=== PATIENT | male | born 1975 | race Caucasian/White ===

== ENCOUNTER 2016-06-04 09:15 | Emergency (ER) | payer MEDICAID ==
[~2016-06-04] VITALS: Ht 182.9 cm; Wt 105.0 kg
[2016-06-04 09:19] VITALS: Ht 182.9 cm; Wt 105.0 kg
[2016-06-04] MEDS ORDERED: KETOROLAC 30 MG INJ IV STA (10:28)
[2016-06-04 10:53] LABS: EOSINOPHILS % 0.2 % (0.0-7.0); HEMATOCRIT 46.2 % (42.0-52.0); HEMOGLOBIN 15.5 g/dl (14.0-18.0); LYMPHOCYTES # 1.7 10^3/ul (0.8-2.9); LYMPHOCYTES % 13.5 % (15.0-51.0); MEAN CORPUSCULAR HEMOGLOBIN 29.4 pg (29.0-33.0); MEAN CORPUSCULAR HGB CONC 33.5 g/dl (32.0-37.0); MEAN CORPUSCULAR VOLUME 87.8 fl (82.0-101.0); MEAN PLATELET VOLUME 8.8 fl (7.4-10.4); MONOCYTE # 0.6 10^3/ul (0.3-0.9); MONOCYTES % 4.5 % (0.0-11.0); NEUTROPHIL # 10.4 10^3/ul (1.6-7.5); NEUTROPHILS % 81.8 % (39.0-77.0); PLATELET COUNT 221 10^3/UL (140-440); RED BLOOD COUNT 5.26 10^6/ul (4.70-6.10); RED CELL DISTRIBUTION WIDTH 13.4 % (11.5-14.5); UNCORRECTED WBC 12.7 10^3/ul (4.8-10.8); WHITE BLOOD COUNT 12.7 10^3/ul (4.8-10.8)
--- NOTE | 2016-06-04 10:54 | ERD ---
ER Documentation Chief Complaint Date/Time DATE: 06/04/16 TIME: 10:53 Chief Complaint LT UPPER ABD PAIN X 1 DAY HPI This is a 40-year-old male who presents to emergency department today complaining of left lower quadrant pain and flank pain that started yesterday. Patient has a history of kidney stones. . States he was last seen in 2011 and diagnosed with kidney stones. If he is taking Naprosyn for the pain.Patient denies any fevers or chills, nausea or vomiting. Denies any dysuria or hematuria ROS All systems reviewed and are negative except as per history of present illness. Medications Home Meds Active Scripts Hydrocodone/Acetaminophen ([place] 10-325 Tablet) 1 Each Tablet, 1 TAB PO Q6H Y for PAIN, #20 TAB Prov:SHAWN ORDOÑEZ PA-C 06/04/16 Allergies Allergies: Coded Allergies: No Known Allergy (Unverified , 01/06/12) PMhx/Soc History of Surgery: No Anesthesia Reaction: No Hx Neurological Disorder: No Hx Respiratory Disorders: No Hx Cardiac Disorders: No Hx Psychiatric Problems: No Hx Miscellaneous Medical Probl: No Hx Alcohol Use: No Hx Substance Use: No Hx Tobacco Use: No Physical Exam Vitals Vital Signs Date Time Temp Pulse Resp B/P Pulse Ox O2 Delivery O2 Flow Rate FiO2 06/04/16 09:19 98.2 68 16 156/91 97 Physical Exam Const: No acute distress Head: Atraumatic Eyes: Normal Conjunctiva ENT: Normal External Ears, Nose and Mouth. Neck: Full range of motion..~ No meningismus. Resp: Clear to auscultation bilaterally Cardio: Regular rate and rhythm, no murmurs Abd: Soft, left lower quadrant pain non distended. Normal bowel sounds. No right lower quadrant pain. No tenderness at McBurney's. Skin: No petechiae or rashes Back: No midline tenderness. Left-sided flank tenderness. No CVA tenderness. Ext: No cyanosis, or edema Neur: Awake and alert Psych: Normal Mood and Affect Result Diagram: 06/04/16 1040 06/04/16 1028 Results 24 hrs Laboratory Tests Test 06/04/16 10:28 06/04/16 10:40 Alanine Aminotransferase (ALT/SGPT) 120IU/L Albumin 4.5g/dl Albumin/Globulin Ratio 1.18 Alkaline Phosphatase 82IU/L Anion Gap 18 Aspartate Amino Transf (AST/SGOT) 71IU/L Blood Urea Nitrogen 14mg/dl Calcium Level 9.4mg/dl Carbon Dioxide Level 27mmol/L Chloride Level 102mmol/L Creatinine 0.76mg/dl Direct Bilirubin 0.00mg/dl Globulin 3.80g/dl Glucose Level 104mg/dl Indirect Bilirubin 0.6mg/dl Lipase 59U/L Potassium Level 4.3mmol/L Sodium Level 143mmol/L Total Bilirubin 0.6mg/dl Total Protein 8.3g/dl Basophils # 0.010^3/ul Basophils % 0.0% Eosinophils # 0.010^3/ul Eosinophils % 0.2% Hematocrit 46.2% Hemoglobin 15.5g/dl Lymphocytes # 1.710^3/ul Lymphocytes % 13.5% Mean Corpuscular Hemoglobin 29.4pg Mean Corpuscular Hemoglobin Concent 33.5g/dl Mean Corpuscular Volume 87.8fl Mean Platelet Volume 8.8fl Monocytes # 0.610^3/ul Monocytes % 4.5% Neutrophils # 10.410^3/ul Neutrophils % 81.8% Nucleated Red Blood Cells # 0.010^3/ul Nucleated Red Blood Cells % 0.0/100WBC Platelet Count 70066^3/UL Red Blood Count 5.2610^6/ul Red Cell Distribution Width 13.4% Urine Bacteria RARE Urine Bilirubin NEGATIVE Urine Clarity CLEAR Urine Color LT. YELLOW Urine Epithelial Cells OCCASIONAL Urine Glucose NEGATIVE% Urine Hemoglobin 3+ Urine Ketones NEGATIVE Urine Leukocyte Esterase NEGATIVE Urine Microscopic RBC 5-10/HPF Urine Microscopic WBC 2-5/HPF Urine Nitrite NEGATIVE Urine Specific [place] 1.010 Urine Total Protein NEGATIVE Urine Urobilinogen 0.2 E.U./dL Urine pH 6.0 White Blood Count 12.710^3/ul Current Medications Medications (Trade) Dose Ordered Sig/Eulogio Route PRN Reason Start Time Stop Time Status Last Admin Dose Admin Ketorolac Tromethamine (Toradol) 30 mg ONCE STAT IV 06/04/16 10:28 06/04/16 10:30 DC 06/04/16 10:46 Patient: GARY BUNDY : 1975 Age: 40 Sex: M MR #: [id number] DOS: 06/04/16 1028 Ordering MD: SHAWN ORDOÑEZ PA-C Location: [facility] Room/Bed: PROCEDURE: CT Abdomen and Pelvis without contrast. CLINICAL INDICATION: Abdominal pain. TECHNIQUE: Routine axial tomographic images of the abdomen and pelvis were obtained from the domes the diaphragm to the symphysis pubis. The patient was scanned withoutoral or intravenous contrast. Coronal and sagittal reformatted images were obtained from the axial source images. Images were reviewed on a high-resolution PACS workstation. The total exam CTDI equals 17.33 mGy and the total exam DLP equals 1114.41 mGy-cm. One or more of the following dose reduction techniques were used: Automated exposure control, adjustment of the mA and / or kV according to patient size, or use of iterative reconstruction technique. COMPARISON: None. FINDINGS: The visualized portions of the lung bases are clear. Evaluation of the intra-abdominal solid organs is somewhat limited on this noncontrast examination. The liver appears normal in size. There is no intra or extrahepatic biliary dilatation. The gallbladder is unremarkable by CT criteria. The spleen, pancreas, and adrenal glands are unremarkable. The kidneys are symmetric in size. There is mild left hydronephrosis and hydroureter with periureteral and perinephric fat stranding. There is a 3 mm calculus within the left distal ureter, just proximal to the left UVJ measuring 700 HU. There are multiple additional bilateral renal calculi, the largest within the mid pole of the right kidney measuring 4.5 mm. The urinary bladder is grossly unremarkable. The bowel demonstrates normal course and caliber. There is no evidence of bowel obstruction. The appendix is normal in appearance. The pelvic organs are grossly unremarkable. No intraperitoneal free fluid, free air, or abscess is identified. No retroperitoneal, mesenteric, or inguinal lymphadenopathy is identified. The aorta is normal in caliber. The osseous structures demonstrate bilateral L5 pars defects. No significant subcutaneous soft tissue abnormalities are seen. IMPRESSION: 1. 3 mm obstructing calculus within the left distal ureter just proximal to the left UVJ measuring 700 HU. There is mild left hydronephrosis and hydroureter with periureteral and perinephric fat stranding. 2. Multiple additional bilateral renal nonobstructing calculi the largest within the upper pole of the right kidney measuring 4.5 mm in diameter. 3. 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 RPTAT: HH .Aby Andrea MD, Date Time Electronically viewed and signed by .Aby Andrea MD, MD on 06/04/2016 11 :29 .G/ CC: SHAWN ORDOÑEZ PA-C Procedures/MDM This 40-year-old male who presents to the emergency department today complaining of left lower quadrant and flank pain. Patient does have a history of renal stones in the past. He was last seen here in 2011. I did discuss the patient with Dr. Hazel and the decision was made to obtain laboratory work as well as a CT scan. Laboratory work shows an elevated white blood cell count of 12.5. Patient is not anemic. Elected lites are within normal limits. Glucose is within normal limits. Lipase is within normal limits. Liver function is mildly elevated. UA is negative for infection. CT abdomen and pelvis noncontrast shows 3 mm obstructing calculus within the left distal ureter just proximal to the left UVJ measuring 782. There is mild left hydronephrosis and hydroureter with boubacar-ureter on perinephric fat stranding. Multiple additional bilateral renal nonobstructing calculi the largest within the upper plan of the right kidney measuring 4.5 mm in diameter. There is L5 spondylolysis without spondylolisthesis. Bowel is unremarkable. There is no evidence of bowel obstruction. Appendix is normal. There is no intraperitoneal free air free fluid or abscess identified. No evidence of diverticulitis. There is no evidence of acute surgical abdomen at this time. Patient is afebrile and otherwise well-appearing. Patient was given Toradol here in the emergency department and pain was well controlled with that. Patient indicated he only had a little bit of pain. A well be given a prescription for [place] for home. He was instructed to drink plenty of fluids. I have given him a list of referrals for primary care physicians as well as a list of urology specialist. At this time the patient is stable for discharge and outpatient management. Patient should follow up with their PCP in the next 1-2 days. They may return to the emergency department sooner for any persistent or worsening of symptoms. Patient understood and agreed with the plan. Discussed the patient with Dr. Hale at length and he is in agreement with the plan. Departure Diagnosis: Primary Impression: Nephrolithiasis Condition: SHAWN Baker PA-C Jun 04, 2016 10:54
[2016-06-04 11:06] LABS: ALBUMIN 4.5 g/dl (3.3-4.9)
[2016-06-04 11:07] LABS: POTASSIUM 4.3 mmol/L (3.5-5.1)
[2016-06-04 11:09] LABS: ALBUMIN/GLOBULIN RATIO 1.18; BILIRUBIN,INDIRECT 0.6 mg/dl (0-1.1); BILIRUBIN,TOTAL 0.6 mg/dl (0.2-1.3); CREATININE 0.76 mg/dl (0.61-1.24); TOTAL PROTEIN 8.3 g/dl (6.1-8.1)
[2016-06-04 11:10] LABS: CALCIUM 9.4 mg/dl (8.4-10.2)
[2016-06-04 11:14] LABS: CONDITION 1
--- NOTE | 2016-06-04 11:29 | RADRPT ---
PROCEDURE: CT Abdomen and Pelvis without contrast. CLINICAL INDICATION: Abdominal pain. TECHNIQUE: Routine axial tomographic images of the abdomen and pelvis were obtained from the domes the diaphragm to the symphysis pubis. The patient was scanned withoutoral or intravenous contrast. Coronal and sagittal reformatted images were obtained from the axial source images. Images were re viewed on a high-resolution PACS workstation. The total exam CTDI equals 17.33 mGy and the total exa m DLP equals 1114.41 mGy-cm. One or more of the following dose reduction techniques were used: Aut omated exposure control, adjustment of the mA and / or kV according to patient size, or use of itera tive reconstruction technique. COMPARISON: None. FINDINGS: The visualized portions of the lung bases are clear. Evaluation of the intra-abdominal solid or juliane is somewhat limited on this noncontrast examination. The liver appears normal in size. There is no intra or extrahepatic biliary dilatation. The gallbladder is unremarkable by CT criteria. Th e spleen, pancreas, and adrenal glands are unremarkable. The kidneys are symmetric in size. There is mild left hydronephrosis and hydroureter with periureter al and perinephric fat stranding. There is a 3 mm calculus within the left distal ureter, just prox imal to the left UVJ measuring 700 HU. There are multiple additional bilateral renal calculi, the l argest within the mid pole of the right kidney measuring 4.5 mm. The urinary bladder is grossly unre markable. The bowel demonstrates normal course and caliber. There is no evidence of bowel obstruction. The a ppendix is normal in appearance. The pelvic organs are grossly unremarkable. No intraperitoneal fr ee fluid, free air, or abscess is identified. No retroperitoneal, mesenteric, or inguinal lymphadeno nalini is identified. The aorta is normal in caliber. The osseous structures demonstrate bilateral L5 pars defects. No significant subcutaneous soft tiss ue abnormalities are seen. IMPRESSION: 1. 3 mm obstructing calculus within the left distal ureter just proximal to the left UVJ measuring 700 HU. There is mild left hydronephrosis and hydroureter with periureteral and perinephric fat str anding. 2. Multiple additional bilateral renal nonobstructing calculi the largest within the upper pole of the right kidney measuring 4.5 mm in diameter. 3. 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 RPTAT: HH .Aby Andrea MD, MD Date Time Electronically viewed and signed by .Aby Andrea MD, MD on 06/04/2016 11:29 .Marylin/
[2016-06-04 11:51] LABS: ADD UMIC YES; URINE BILIRUBIN (Dip) NEGATIVE (NEGATIVE); URINE BLOOD (Dip) 3+ (NEGATIVE); URINE COLOR LT. YELLOW (YELLOW); URINE GLUCOSE (Dip) NEGATIVE (NEGATIVE); URINE KETONES (Dip) NEGATIVE (NEGATIVE); URINE LEUKOCYTE ESTERASE (Dip) NEGATIVE (NEGATIVE); URINE NITRITE (Dip) NEGATIVE (NEGATIVE); URINE TOTAL PROTEIN (Dip) NEGATIVE (NEGATIVE); URINE UROBILINOGEN (Dip) 0.2 E.U./dL (0.1-1.0)
[2016-06-04 12:48] LABS: BACTERIA,URINE RARE
[2016-06-04] MEDS ORDERED: HYDR-902 PO (13:07)
[2016-06-04 13:15] VITALS: BP 128/83; PULSE 61; RESP 18; TEMP 98
== END 2016-06-04 13:15 | disposition home or self-care (01) ==
LOC: FTE 09:15
DX: N20.0 Calculus of kidney (principal)
CPT/HCPCS: 74176; 80053; 81001; 83690; 85025; J1885; 36415; 81003; 96374

== ENCOUNTER 2016-06-07 11:21 | Emergency (ER) | payer MEDICAID ==
[~2016-06-07] VITALS: Wt 100.0 kg
[~2016-06-07 11:21] MED LIST: HYDR-902 PO
[2016-06-07] MEDS ORDERED: HYDROmorphONE 2 MG/ML SYG IM STA (11:54)
[2016-06-07] MEDS ORDERED: ONDANSETRON (ODT) 4 MG TAB ODT STA (11:54)
[2016-06-07] MEDS ORDERED: KETOROLAC 30 MG INJ IM STA (11:54)
[2016-06-07 11:57] LABS: URINE BLOOD (Dip) POC 1+ (NEGATIVE)
[2016-06-07] MEDS ORDERED: IBUP-1542 PO (11:58)
[2016-06-07] MEDS ORDERED: DOCU-144 PO (11:58)
[2016-06-07] MEDS ORDERED: TAMS-14 PO (11:58)
--- NOTE | 2016-06-07 16:04 | ERD ---
ER Documentation Chief Complaint Date/Time DATE: 06/07/16 TIME: 16:02 Chief Complaint left lower quad abd pain for the past few days. no bm for 3 days HPI Patient is a 40-year-old male with kidney stone who presents with a "kidney stone". The symptoms started on Friday. The pain is constant. He tried Bessie with minimal help. He has had no fevers. He said that he has not had a bowel movement in 3 days. Upon review of old medical records this is the patient's third visit to the ER since 2011 and he was seen here 3 days ago and had labs and a CT scan which showed a kidney stone. He does not currently have a primary doctor. ROS All systems reviewed and are negative except as per history of present illness. Medications Home Meds Active Scripts Docusate Sodium* (Colace*) 100 Mg Capsule, 100 MG PO TID, #30 CAP Prov:RICCO BARRIENTOS MD 06/07/16 Tamsulosin Hcl* (Flomax*) 0.4 Mg Cap.er.24h, 0.4 MG PO QPM, #30 CAP Prov:RICCO BARRIENTOS MD 06/07/16 Ibuprofen* (Motrin*) 600 Mg Tab, 600 MG PO Q6H Y for PAIN AND OR ELEVATED TEMP, #30 TAB Prov:RICCO BARRIENTOS MD 06/07/16 Hydrocodone/Acetaminophen ([place] 10-325 Tablet) 1 Each Tablet, 1 TAB PO Q6H Y for PAIN, #20 TAB Prov:SHAWN ORDOÑEZ PA-C 06/04/16 Allergies Allergies: Coded Allergies: No Known Allergy (Unverified , 01/06/12) PMhx/Soc Positive for kidney stone History of Surgery: No Anesthesia Reaction: No Hx Neurological Disorder: No Hx Respiratory Disorders: No Hx Cardiac Disorders: No Hx Psychiatric Problems: No Hx Miscellaneous Medical Probl: No Hx Alcohol Use: No Hx Substance Use: No Hx Tobacco Use: No Smoking Status: Current some day smoker FmHx Family History: No diabetes Physical Exam Vitals Vital Signs Date Time Temp Pulse Resp B/P Pulse Ox O2 Delivery O2 Flow Rate FiO2 06/07/16 11:22 98.3 79 20 160/81 97 Physical Exam Const: Mild distress secondary to pain Head: Atraumatic Eyes: Normal Conjunctiva ENT: Normal External Ears, Nose and Mouth. Neck: Full range of motion..~ No meningismus. Resp: Clear to auscultation bilaterally Cardio: Regular rate and rhythm, no murmurs Abd: Soft, non tender, non distended. Normal bowel sounds Skin: No petechiae or rashes Back: No midline or flank tenderness Ext: No cyanosis, or edema Neur: Awake and alert Psych: Normal Mood and Affect Results 24 hrs Laboratory Tests Test 06/07/16 11:57 Bedside Urine Blood 1+ Bedside Urine Glucose (UA) Negative Bedside Urine Ketones (LAB) Negative Bedside Urine Leukocyte Esterase (L Negative Bedside Urine Nitrite (LAB) Negative Bedside Urine Protein (LAB) Trace Bedside Urine pH (LAB) 6.5 Current Medications Medications (Trade) Dose Ordered Sig/Eulogio Route PRN Reason Start Time Stop Time Status Last Admin Dose Admin Hydromorphone HCl (Dilaudid) 2 mg ONCE STAT IM 06/07/16 11:54 06/07/16 11:56 DC 06/07/16 12:01 Ketorolac Tromethamine (Toradol) 30 mg ONCE STAT IM 06/07/16 11:54 06/07/16 11:56 DC 06/07/16 12:01 Ondansetron HCl (Zofran Odt) 4 mg ONCE STAT ODT 06/07/16 11:54 06/07/16 11:56 DC 06/07/16 12:01 Procedures/MDM Patient is a 40-year-old male presents with kidney stone. CT scan showed 3 mm kidney stone when it was done 3 days ago. I do not believe he requires repeat laboratory studies or CT scan. The patient was given Dilaudid and Toradol for pain. I will give him a prescription for ibuprofen as well as Flomax and Colace. He can follow-up with Dr. Spangler from urology within 24-48 hours for reevaluation. He can return sooner for any worsening symptoms. The stone is 3 mm it may pass on its own. I doubt infected stone. Departure Diagnosis: Primary Impression: Kidney stone Additional Impression: Flank pain Condition: Fair Patient Instructions: Kidney Stone W/ Colic Referrals: CHA SPANGLER MD Additional Instructions: Specialist:Usted tiene carlos condicin mdica que requiere que valdez a un especialista dentro de los prximos 1-2 diego.POR FAVOR,CON LUKE SEGUIMIENTO DE PRIMARIA PHSICIAN refferal. SI USTED NO TIENE UN MDICO GENERAL Y / O USTED NO PUEDE PAGAR augie a un mdico,los siguientes reece RECURSOS sido suministrado a usted. ES LUKE RESPONSABILIDAD PARA SER VISTOS POR EL ESPECIALISTA: RICCO BARRIENTOS MD Jun 07, 2016 16:04
== END 2016-06-07 12:28 | disposition home or self-care (01) ==
LOC: E/R 11:21
DX: N20.0 Calculus of kidney (principal); F17.210 Nicotine dependence, cigarettes, uncomplicated
CPT/HCPCS: 81003; 96372; J1170; J1885; Z7502; Z7610

== ENCOUNTER 2017-04-26 18:10 | Emergency (ER) | END 2017-04-26 21:40 | disposition home or self-care (01) ==

== ENCOUNTER 2017-04-28 07:48 | Emergency (ER) | payer MEDICAID ==
[~2017-04-28] VITALS: Ht 182.9 cm; Wt 104.6 kg
[~2017-04-28 07:48] MED LIST changes: +DOCU-144 PO; +HYDR-906 PO; +IBUP-1542 PO; +TAMS-14 PO
[2017-04-28 07:51] VITALS: Ht 182.9 cm; Wt 104.6 kg
[2017-04-28] MEDS ORDERED: KETOROLAC 30 MG INJ IV STA (08:06)
[2017-04-28] MEDS ORDERED: morphine 4 MG/ML VIAL IV STA (08:06)
[2017-04-28] MEDS ORDERED: SOD CHLORIDE 0.9% 500 ML IV STA (08:06)
[2017-04-28] MEDS ORDERED: ONDANSETRON 4 MG INJ IV STA (08:06)
--- NOTE | 2017-04-28 08:16 | ERD ---
ER Documentation Chief Complaint Chief Complaint RLQ ABD PAIN STARTING ON FRIDAY. W/ VOMITING. HPI This is a 41-year-old Turkish-speaking male. An electrical cad designer was used. The patient describes right sided colicky abdominal pain. The patient was seen here on Friday and diagnosed with ureterolithiasis. The patient had a 6 x 5 x 3 mm stone at the UVJ. The patient had improvement of symptoms but had recurrence this morning. He is taking pain medication without much relief. Pain is 7 out of 10 and constant currently. No fevers or chills. The patient has not follow-up with urologist and does not have a urologist to see. ROS All systems reviewed and are negative except as per history of present illness. Medications Home Meds Active Scripts Tamsulosin Hcl* (Flomax*) 0.4 Mg Cap.er.24h, 0.4 MG PO QPM, #20 CAP Prov:CSOME RAO PA-C 04/26/17 Ibuprofen* (Motrin*) 600 Mg Tab, 600 MG PO Q6, #30 TAB Prov:COSME RAO PA-C 04/26/17 Hydrocodone/Acetaminophen ([place] 5-325 Tablet) 1 Each Tablet, 1 EACH PO Q6, #12 TAB Prov:COSME RAO PA-C 04/26/17 Docusate Sodium* (Colace*) 100 Mg Capsule, 100 MG PO TID, #30 CAP Prov:RICCO BARRIENTOS MD 06/07/16 Tamsulosin Hcl* (Flomax*) 0.4 Mg Cap.er.24h, 0.4 MG PO QPM, #30 CAP Prov:RICCO BARRIENTOS MD 06/07/16 Ibuprofen* (Motrin*) 600 Mg Tab, 600 MG PO Q6H Y for PAIN AND OR ELEVATED TEMP, #30 TAB Prov:RICCO BARRIENTOS MD 06/07/16 Hydrocodone/Acetaminophen ([place] 10-325 Tablet) 1 Each Tablet, 1 TAB PO Q6H Y for PAIN, #20 TAB Prov:SHAWN ORDOÑEZ PA-C 06/04/16 Allergies Allergies: Coded Allergies: No Known Allergy (Unverified , 01/06/12) PMhx/Soc History of Surgery: No Anesthesia Reaction: No Hx Neurological Disorder: No Hx Respiratory Disorders: No Hx Cardiac Disorders: No Hx Psychiatric Problems: No Hx Miscellaneous Medical Probl: No (kidney stones) Hx Alcohol Use: No Hx Substance Use: No Hx Tobacco Use: No Smoking Status: Never smoker Physical Exam Vitals Vital Signs Date Time Temp Pulse Resp B/P Pulse Ox O2 Delivery O2 Flow Rate FiO2 04/28/17 07:51 98.4 75 18 189/91 97 Physical Exam General: Lightly uncomfortable but no significant distress Head: Normocephalic, atraumatic. Eyes: Pupils equally reactive, EOM intact ENT: Moist mucous membranes Neck: Supple, no lymphadenopathy Respiratory: Lungs clear bilaterally, no distress Cardiovascular: RRR, no murmurs, rubs, or gallops Abdominal: Soft, slight tenderness to the right side of the abdomen, no tenderness to McBurney's point, no peritoneal signs, negative Kunz sign : Deferred MSK: No edema, no unilateral swelling, 5/5 strength Neurologic: Alert and oriented, moving all extremities, normal speech, no focal weakness, no cerebellar signs Skin: No rash Psych: Normal mood Result Diagram: 04/28/17 0820 04/28/17 0820 Results 24 hrs Laboratory Tests Test 04/28/17 08:20 White Blood Count 15.310^3/ul Red Blood Count 5.0610^6/ul Hemoglobin 14.9g/dl Hematocrit 44.5% Mean Corpuscular Volume 87.9fl Mean Corpuscular Hemoglobin 29.4pg Mean Corpuscular Hemoglobin Concent 33.5g/dl Red Cell Distribution Width 13.2% Platelet Count 43833^3/UL Mean Platelet Volume 10.2fl Neutrophils % 82.2% Lymphocytes % 10.6% Monocytes % 6.5% Eosinophils % 0.1% Basophils % 0.3% Nucleated Red Blood Cells % 0.0/100WBC Neutrophils # 12.610^3/ul Lymphocytes # 1.610^3/ul Monocytes # 1.010^3/ul Eosinophils # 0.010^3/ul Basophils # 0.010^3/ul Nucleated Red Blood Cells # 0.010^3/ul Urine Color YELLOW Urine Clarity CLEAR Urine pH 5.0 Urine Specific [place] 1.020 Urine Ketones NEGATIVEmg/dL Urine Nitrite NEGATIVEmg/dL Urine Bilirubin NEGATIVEmg/dL Urine Urobilinogen NEGATIVEmg/dL Urine Leukocyte Esterase NEGATIVELeu/ul Urine Hemoglobin NEGATIVEmg/dL Urine Glucose NEGATIVEmg/dL Urine Total Protein NEGATIVEmg/dl Sodium Level 140mmol/L Potassium Level 4.3mmol/L Chloride Level 102mmol/L Carbon Dioxide Level 29mmol/L Anion Gap 13 Blood Urea Nitrogen 18mg/dl Creatinine 1.37mg/dl Glucose Level 127mg/dl Calcium Level 9.3mg/dl Current Medications Medications (Trade) Dose Ordered Sig/Eulogio Route PRN Reason Start Time Stop Time Status Last Admin Dose Admin Sodium Chloride (NS) 500 ml @ 500 mls/hr Q1H STAT IV 04/28/17 08:06 04/28/17 09:05 DC 04/28/17 08:27 Morphine Sulfate (morphine) 4 mg ONCE STAT IV 04/28/17 08:06 04/28/17 08:07 DC 04/28/17 08:25 Ondansetron HCl (Zofran Inj) 4 mg ONCE STAT IV 04/28/17 08:06 04/28/17 08:07 DC 04/28/17 08:25 Ketorolac Tromethamine (Toradol) 30 mg ONCE STAT IV 04/28/17 08:06 04/28/17 08:07 DC 04/28/17 08:25 Tamsulosin HCl (Flomax) 0.4 mg ONCE ONCE PO 04/28/17 08:30 04/28/17 08:31 DC 04/28/17 08:27 Procedures/MDM EKG, MONITORS, & DIAGNOSTIC IMAGING: CT abdomen and pelvis recently from ER visit IMPRESSION: 1. 6 x 5 x 3 mm obstructing calculus in the distal right ureter, just outside the right ureteral vesicle junction. 2. Fatty infiltration of the liver. RPTAT: UU LAB INTERPRETATION: Mild renal insufficiency that is unchanged from baseline. White count improving MEDICAL DECISION MAKING: This patient presents the emergency room with persistent pain secondary to a UVJ stone. The patient's stone is somewhat large at 6 mm in maximum diameter. However a trial of passage seems reasonable. The patient exhibits no signs of renal failure, infection. If we are able to control the patient's pain and there is no signs of these processes, outpatient management may still be appropriate. The patient is only had several days of symptoms and 7 days of symptoms would be average therefore expectations have been rediscussed with the patient. The patient absolutely needs follow-up with urology and I will provide local resources and information for this follow-up. If the patient has evidence of infection or uncontrolled pain and patient hospitalization for urology consultation would be reasonable. ER COURSE: The patient's laboratory testing is consistent with baseline. The patient's pain is completely resolved with symptom control here in the emergency room. At this time a trial passage as an outpatient would be reasonable. I did discuss return precautions for fever or worsening pain. The patient verbalized understanding. Local resources provided for urology follow-up. I kept the patient and/or family informed of laboratory and diagnostic imaging results throughout the emergency room course. DISPOSITION PLAN: We discussed follow up with the patient's primary care doctor within 24 to 48 hours as needed. We also discussed return to the emergency room for worsening symptoms or worsening condition. Outpatient referral: [None required] Discharge Medications: Patient has Jackson, Motrin, Flomax at home. Departure Diagnosis: Primary Impression: Ureterolithiasis Additional Impressions: Acute renal insufficiency Leukocytosis Leukocytosis type: unspecified Qualified Code: D72.829 - Leukocytosis, unspecified type Condition: Stable FADIA CAMACHO MD Apr 28, 2017 08:16
[2017-04-28] MEDS ORDERED: TAMSULOSIN (SR) 0.4 MG CAP PO ONE (08:30)
[2017-04-28 08:38] LABS: BASOPHILS % 0.3 % (0.0-2.0); EOSINOPHILS % 0.1 % (0.0-7.0); HEMATOCRIT 44.5 % (42.0-52.0); HEMOGLOBIN 14.9 g/dl (14.0-18.0); LYMPHOCYTES # 1.6 10^3/ul (0.8-2.9); LYMPHOCYTES % 10.6 % (15.0-51.0); MEAN CORPUSCULAR HEMOGLOBIN 29.4 pg (29.0-33.0); MEAN CORPUSCULAR HGB CONC 33.5 g/dl (32.0-37.0); MEAN CORPUSCULAR VOLUME 87.9 fl (82.0-101.0); MEAN PLATELET VOLUME 10.2 fl (7.4-10.4); MONOCYTES % 6.5 % (0.0-11.0); NEUTROPHIL # 12.6 10^3/ul (1.6-7.5); NEUTROPHILS % 82.2 % (39.0-77.0); PLATELET COUNT 214 10^3/UL (140-415); RED BLOOD COUNT 5.06 10^6/ul (4.70-6.10); RED CELL DISTRIBUTION WIDTH 13.2 % (11.5-14.5); WHITE BLOOD COUNT 15.3 10^3/ul (4.8-10.8)
[2017-04-28 08:44] LABS: ADD UMIC NO; UR ASCORBIC ACID NEGATIVE (NEGATIVE); UR BILIRUBIN (Dip) NEGATIVE (NEGATIVE); UR BLOOD (Dip) NEGATIVE (NEGATIVE); UR CLARITY CLEAR (CLEAR); UR COLOR YELLOW (YELLOW); UR GLUCOSE (Dip) NEGATIVE (NEGATIVE); UR KETONES (Dip) NEGATIVE (NEGATIVE); UR LEUKOCYTE ESTERASE (Dip) NEGATIVE Leu/ul (NEGATIVE); UR NITRITE (Dip) NEGATIVE (NEGATIVE); UR TOTAL PROTEIN (Dip) NEGATIVE (NEGATIVE); UR UROBILINOGEN (Dip) NEGATIVE (NEGATIVE)
[2017-04-28 09:01] LABS: CALCIUM 9.3 mg/dl (8.4-10.2); CREATININE 1.37 mg/dl (0.61-1.24); POTASSIUM 4.3 mmol/L (3.5-5.1)
[2017-04-28 10:04] VITALS: BP 145/75; PULSE 88; RESP 18
== END 2017-04-28 10:16 | disposition home or self-care (01) ==
LOC: E/R 07:48
DX: N13.2 Hydronephrosis with renal and ureteral calculous obstruction (principal); N28.9 Disorder of kidney and ureter, unspecified; D72.829 Elevated white blood cell count, unspecified
CPT/HCPCS: 36415; 80048; 81003; 85025; 87086; 96374; 96375; J1885; J2270; J2405; J7040; Z7502; Z7610